=== PATIENT | male | born 1990 | race Caucasian/White ===

== ENCOUNTER 2019-09-11 21:59 | Emergency (ER) | payer OTHER ==
[~2019-09-11 21:59] MED LIST: HYDACE5 PO; PROM25 PO
[2019-09-11] MEDS ORDERED: VENL75ER PO (22:20)
== END 2019-09-11 23:18 | disposition home or self-care (01) ==
DX: F10.129 Alcohol abuse with intoxication, unspecified (principal); S09.90XA Unspecified injury of head, initial encounter; S50.01XA Contusion of right elbow, initial encounter; W22.8XXA Striking against or struck by other objects, initial encounter

== ENCOUNTER 2019-09-12 21:37 | Inpatient (IN) | payer OTHER ==
[~2019-09-12] VITALS: Ht 175.3 cm; Wt 89.2 kg
[~2019-09-12 21:37] MED LIST changes: +VENL75ER PO
[2019-09-12 23:54] LABS: BASOPHILS ABSOLUTE AUTO 0.06 K/mm3 (0.00-0.23); BASOPHILS PERCENT AUTO 1 % (0-2); EOSINOPHILS ABSOLUTE AUTO 0.03 K/mm3 (0.00-0.68); EOSINOPHILS PERCENT AUTO 1 % (0-6); Hematocrit 39.5 % (37.0-53.0); Hemoglobin 13.2 g/dL (13.5-17.5); IMMATURE GRAN ABSOLUTE AUTO 0.02 K/mm3 (0.00-0.10); IMMATURE GRAN PERCENT AUTO 0 % (0-1); LYMPHOCYTES ABSOLUTE AUTO 0.85 K/mm3 (0.84-5.20); LYMPHOCYTES PERCENT AUTO 15 % (21-46); MONOCYTES ABSOLUTE AUTO 0.73 K/mm3 (0.16-1.47); MONOCYTES PERCENT AUTO 13 % (4-13); Mean Corpuscular HGB 30.6 pg (26.0-34.0); Mean Corpuscular HGB Conc 33.4 g/dL (31.5-36.5); Mean Corpuscular Volume 92 fL (80-100); Mean Platelet Volume 9.9 fL (9.1-12.4); NEUTROPHILS ABSOLUTE AUTO 4.07 K/mm3 (1.96-9.15); NEUTROPHILS PERCENT AUTO 71 % (41-73); Platelet Count 116 K/mm3 (150-400); RDW Coefficient Variation 14.8 % (11.7-14.2); RDW Standard Deviation 50.4 fL (35.1-46.3); Red Blood Cell Count 4.31 M/mm3 (4.30-5.90); White Blood Cell Count 5.76 K/mm3 (4.00-11.30)
[2019-09-13 00:01] LABS: Alanine Aminotransfer (ALT/SGP 130 U/L (12-78); Albumin, Blood 3.9 g/dL (3.4-5.0); Albumin/Globulin Ratio 1.1 (0.8-1.8); Alk Phos 93 U/L (50-136); Anion Gap 10 mmol/L (6-16); Aspartate Aminotrans (AST/SGOT 128 U/L (12-37); Bilirubin, Total 0.7 mg/dL (0.1-1.0); Blood Urea Nitrogen 8 mg/dL (8-24); Bun/Creatinine Ratio 11.1 (12.0-20.0); CO2, Blood 26 mmol/L (21-32); Calcium, Blood 8.4 mg/dL (8.5-10.1); Chloride, Blood 101 mmol/L (98-108); Creatinine, Blood 0.72 mg/dL (0.60-1.20); Globulin, Blood 3.4 g/dL (2.2-4.0); Glomerular Filtration Rate >60 (60-); Glucose, Blood 92 mg/dL (70-99); Sodium, Blood 137 mmol/L (136-145); Total Protein, Blood 7.3 g/dL (6.4-8.2)
[2019-09-13] MEDS ORDERED: BUPR100 PO (00:47)
--- NOTE | 2019-09-13 05:49 | NUR ---
SHIFT SUMMARY PATIENT SLEPT WELL THROUGH NIGHT. WITHDRWAL SYMPTOMS GREATLY IMPROVED SINCE STARTING PRECEDEX DRIP @ 03:30. GAVE LIBRIUM IN HOPES TO BE ABLE TO TURN OFF DRIP LATER ON DAY SHIFT, WILL CONTINUE TO MONITOR. PRECEDEX INFUSING @ 0.2 MCG/KG/HOUR. PATIENT HAS REMAINED PLEASANT TO SPEAK WITH, NO SIGNS OF AGITATION. NO C/O PAIN. NOTABLE SYMPTOMS WERE TREMORS, NOW ABLE TO HOLD A CUP AND FEED HIMSELF ICE CHIPS, WHERE EARLIER PT. WAS SHAKING SO VOILENTLY HE SHOOK ICE CHIPS OUT OF CUP. ASSESSMENT IS CHARTED. VSS. WILL CONTINUE TO MONITOR.
[2019-09-13 06:08] LABS: BASOPHILS ABSOLUTE AUTO 0.06 K/mm3 (0.00-0.23); BASOPHILS PERCENT AUTO 1 % (0-2); EOSINOPHILS ABSOLUTE AUTO 0.07 K/mm3 (0.00-0.68); EOSINOPHILS PERCENT AUTO 1 % (0-6); Hematocrit 39.5 % (37.0-53.0); Hemoglobin 13.2 g/dL (13.5-17.5); IMMATURE GRAN ABSOLUTE AUTO 0.02 K/mm3 (0.00-0.10); IMMATURE GRAN PERCENT AUTO 0 % (0-1); LYMPHOCYTES ABSOLUTE AUTO 1.06 K/mm3 (0.84-5.20); LYMPHOCYTES PERCENT AUTO 18 % (21-46); MONOCYTES ABSOLUTE AUTO 0.71 K/mm3 (0.16-1.47); MONOCYTES PERCENT AUTO 12 % (4-13); Mean Corpuscular HGB 30.9 pg (26.0-34.0); Mean Corpuscular HGB Conc 33.4 g/dL (31.5-36.5); Mean Corpuscular Volume 93 fL (80-100); NEUTROPHILS ABSOLUTE AUTO 3.83 K/mm3 (1.96-9.15); NEUTROPHILS PERCENT AUTO 67 % (41-73); Platelet Count 107 K/mm3 (150-400); RDW Coefficient Variation 14.7 % (11.7-14.2); RDW Standard Deviation 49.3 fL (35.1-46.3); Red Blood Cell Count 4.27 M/mm3 (4.30-5.90); White Blood Cell Count 5.75 K/mm3 (4.00-11.30)
[2019-09-13 06:21] LABS: Alanine Aminotransfer (ALT/SGP 121 U/L (12-78); Albumin, Blood 3.7 g/dL (3.4-5.0); Albumin/Globulin Ratio 1.1 (0.8-1.8); Alk Phos 81 U/L (50-136); Anion Gap 6 mmol/L (6-16); Aspartate Aminotrans (AST/SGOT 113 U/L (12-37); Bilirubin, Total 1.1 mg/dL (0.1-1.0); Blood Urea Nitrogen 11 mg/dL (8-24); Bun/Creatinine Ratio 13.8 (12.0-20.0); CO2, Blood 28 mmol/L (21-32); Calcium, Blood 8.7 mg/dL (8.5-10.1); Chloride, Blood 99 mmol/L (98-108); Globulin, Blood 3.4 g/dL (2.2-4.0); Glomerular Filtration Rate >60 (60-); Glucose, Blood 104 mg/dL (70-99); Sodium, Blood 133 mmol/L (136-145); Total Protein, Blood 7.1 g/dL (6.4-8.2)
--- NOTE | 2019-09-13 08:49 | NUR ---
ASSUMED CARE OF PT AT 0700. REPORT FROM SHANA HALL. PT RESTING IN BED. WAKES c VERBAL STIMULI. A&O X 4. ANSWERS QUESTIONS APPROPRIATELY. DENIES SPECIFIC COMPLAINTS, STATES "I JUST FEEL LIKE CRAP." REPORTS MILD NAUSEA. DENIES HOGUE, VOMITING, HALLUCINATIONS. COOPERATIVE AND PLEASANT. RETURNS TO SLEEP WHEN UNDISTURBED. PRECEDEX INFUSING AT 0.2 MCG/KG/HR AT START OF SHIFT. PLACED ON STANDBY. CIWA 3 AT THIS TIME. WILL CONTINUE TO MONITOR AND MEDICATE c ATIVAN AND LIBRIUM. PT ABLE TO REPOSITION SELF AND SHIFT IN BED. USES CALL LIGHT APPROPRIATELY. MAEW. MEDINAS. WILL CONTINUE TO MONITOR.
--- NOTE | 2019-09-13 16:55 | NUR ---
SHIFT SUMMARY PT STATUS CHANGED TO PCU THIS SHIFT. PRECEDEX ON STANDBY SINCE THIS AM. MEDICATED c ATIVAN AND LIBRIUM PRN. CIWAS RANGED FROM 3-16. PT TREMOROUS AND DIAPHORETIC. DENIES HALLUCINATIONS, CONFUSION, N/V, OR HOGUE. ABLE TO STAND AT BEDSIDE TO USE URINAL. TOLERATED DIET WELL. VSS. WILL CONTINUE TO MONITOR UNTIL REPORT TO ONCOMING NURSE.
--- NOTE | 2019-09-14 05:39 | NUR ---
SHIFT SUMMARY PATIENT SLEPT OFF AND ON THROUGH NIGHT. CIWA ~ 12-15 WHEN NEEDING ATIVAN, HAVE GIVEN AVAILABLE LIBRIUM WELL. CONTINUES TO DEVELOP MODERATE TREMORS, HOWEVER COORDINATION IS GREATLY IMPROVED TONIGHT COMPARED TO YESTERDAY, ABLE TO FEED SELF, BRUSH TEETH, BASIC A.D.L.s. ATTEMPTED STANDING A COUPLE OF TIMES, STILL VERY SHAKY IN LEGS, DECIDED AGAINST STANDING/TRANSFERRING TO CHAIR, PT. AGREEABLE. PATIENT REMAINS CALM, COOPERATIVE, ALERT, ORIENTED, AND VERY PLEASANT. ~ 03:00 PATIENT STARTED TO DEVELOP HEADACHE, NAUSEA, IMPROVED WITH 2MG ATIVAN, SEE EMAR. OTHERWISE NO ACUTE CHANGES OVERNIGHT. ASSESSMENT IS CHARTED. VSS. WILL CONTINUE TO MONITOR.
--- NOTE | 2019-09-14 16:51 | NUR ---
SHIFT SUMMARY/TRANSFER TO MEDICAL FLOOR CIWAS 8-9 THIS SHIFT. MEDICATED c LIBRIUM q6 AND ATIVAN PRN FOR WITHDRAW. PT CONTINUES TO HAVE TREMORS, IMPROVED SINCE YESTERDAY DAY SHIFT. ABLE TO SHOWER INDEPENDENTLY c STANDBY ASSIST. REPORTED OCCASIONAL NAUSEA, NO EMESIS. DENIES HALLUCINATIONS. USING CALL LIGHT APPROPRIATELY. VSS. PT EXPRESSED INTEREST IN INPATIENT TREATMENT, CARE MANAGEMENT NOTIFIED. REPORT TO MEDICAL RN. ALL BELONGINGS SENT c PT. TRANSFERRED VIA WC.
--- NOTE | 2019-09-14 16:59 | NUR ---
TRANSFER NOTE: PT ARRIVED TO THE UNIT VIA W/C AT 1644. PT SBA TO HOSP BED AND ORIENTED TO ROOM. CALL LIGHT WITHIN REACH. PT CURRENTLY RESTING IN BED. RECEIVED REPORT FROM FLEX HALL.
--- NOTE | 2019-09-14 19:04 | NUR ---
SHIFT SUMMARY: PT TRANSFERRED FROM ICU THIS EVENING. PT LUNGS ARE CLEAR AND VSS. PT GIVEN 2MG ATIVAN AFTER ARIVING TO UNIT. SEE ALCOHOL WITHDRAWL ASSESSMENT. PT GIVEN FLUIDS UPON REQUEST. REPORT GIVEN TO NIGHT RN.
--- NOTE | 2019-09-14 19:30 | NUR ---
ASSUMED CARE RECEIVED REPORT FROM DAY RN, ASSUMED CARE OF PT. PT RESTING COMFORTABLY AT THIS TIME, NO S/S ACUTE DISTRESS NOTED, AT EASE. DENIES NEEDS AT THIS TIME. CALL LIGHT, POSSESSIONS IN REACH, BED IN LOWEST POSITION. WILL CONTINUE TO MONITOR.
--- NOTE | 2019-09-15 03:38 | NUR ---
SHIFT SUMMARY PT RESTING COMFORTABLY AT THIS TIME, NO S/S ACUTE DISTRESS NOTED. CIWAS RANGING BETWEEN 0-7, PT TREATED ORDERED. CALLING FOR NEEDS APPROPRIATELY, UP IN ROOM WITH SUPERVISION NEEDED. DENIES NEEDS AT THIS TIME. CALL LIGHT, POSSESSIONS IN REACH, WILL CONTINUE TO MONITOR UNTIL DAY RN ASSUMES CARE
[2019-09-15 05:14] LABS: BASOPHILS ABSOLUTE AUTO 0.07 K/mm3 (0.00-0.23); BASOPHILS PERCENT AUTO 1 % (0-2); EOSINOPHILS ABSOLUTE AUTO 0.15 K/mm3 (0.00-0.68); EOSINOPHILS PERCENT AUTO 2 % (0-6); Hematocrit 40.6 % (37.0-53.0); Hemoglobin 13.6 g/dL (13.5-17.5); IMMATURE GRAN ABSOLUTE AUTO 0.03 K/mm3 (0.00-0.10); IMMATURE GRAN PERCENT AUTO 0 % (0-1); LYMPHOCYTES ABSOLUTE AUTO 1.41 K/mm3 (0.84-5.20); LYMPHOCYTES PERCENT AUTO 21 % (21-46); MONOCYTES ABSOLUTE AUTO 0.68 K/mm3 (0.16-1.47); MONOCYTES PERCENT AUTO 10 % (4-13); Mean Corpuscular HGB 31.1 pg (26.0-34.0); Mean Corpuscular HGB Conc 33.5 g/dL (31.5-36.5); Mean Corpuscular Volume 93 fL (80-100); Mean Platelet Volume 10.3 fL (9.1-12.4); NEUTROPHILS PERCENT AUTO 66 % (41-73); Platelet Count 129 K/mm3 (150-400); RDW Coefficient Variation 14.1 % (11.7-14.2); RDW Standard Deviation 48.7 fL (35.1-46.3); Red Blood Cell Count 4.37 M/mm3 (4.30-5.90); White Blood Cell Count 6.84 K/mm3 (4.00-11.30)
[2019-09-15 05:35] LABS: Anion Gap 8 mmol/L (6-16); Blood Urea Nitrogen 14 mg/dL (8-24); CO2, Blood 27 mmol/L (21-32); Calcium, Blood 8.8 mg/dL (8.5-10.1); Chloride, Blood 98 mmol/L (98-108); Creatinine, Blood 0.94 mg/dL (0.60-1.20); Glomerular Filtration Rate >60 (60-); Glucose, Blood 107 mg/dL (70-99); Potassium, Blood 3.6 mmol/L (3.5-5.5); Sodium, Blood 133 mmol/L (136-145)
[2019-09-15] MEDS ORDERED: BUPR75 PO (14:56)
--- NOTE | 2019-09-15 18:38 | NUR ---
SHIFT SUMMARY. PT RESTING IN BED WITH EYES CLOSED DURING MOST OF THE SHIFT. PT REQUIRED MEDICATION FOR WITHDAWL SYMPTOMS TWICE THIS SHIFT. PT C/O HEAD PAIN ONCE THIS SHIFT, PT REPORTS FALL PRIOR TO ADMISSION, DR. HILL NOTIFIED AND RECIEVED ORDER FOR IBUPROFEN. PT MEDICATED FOR PAIN WITH GOOD EFFECT. NO OTHER CHANGES OR CONCERNS.
--- NOTE | 2019-09-15 19:58 | NUR ---
Alcohol WD score 14 BP elevated. Ativen 2 mg given for ETOH WD. Fall precautions as per protocol. Will recheck BP since I have medicated for withdrawl.
--- NOTE | 2019-09-16 05:18 | NUR ---
28 year old Male alcoholic with admission with delerium tremens continues to require rx to tx CIWA of 12 this AM. BP stabilized after 2 mg ativen last night & PT rested fairly well. This AM CIWA 12 & PT medicated with 50 mg PO librium to decrease potential for injury. PT had fallen at [address] during withdrawl attempt & has rt eye ecchymosis & scalp laceration. He is [employer] recieved ETOH tx over 1 year ago & desires to go to inpt tx program at [facility]. Willing to go to [place] for InPT tx program. PT says he is currently homeless but could DC to Cousins home until treatment slot opens up. PT has been in contact with [facility] this AM per PT report to get into treatment but says there is several weeks wait to get into program. States he had almost 1 year sobrity post rehab. Encouraged ETOH cessation.
--- NOTE | 2019-09-16 16:27 | NUR ---
PT RESTING, EYES CLOSED, RESP EASY, UNLABORED, DID NOT AWAKEN
--- NOTE | 2019-09-16 19:41 | NUR ---
PT VERY PLEASANT AND RESPECTFUL TODAY. ADMITS TO DRINKING ISSUES, TRYING TO GET HELP. ENCOURAGED HIM SEVERAL TIMES TODAY. PT MANAGED WITH AVAIL MEDS FOR ETOH WITHDRAWAL. NO OTHER CONCERNS AT THIS TIEM. BED IN LOW POSITION, CALL LITE IN REACH, CALLS APPROP.
--- NOTE | 2019-09-17 01:46 | NUR ---
CIWAS CONTINUE. VOICED SEVERE HEADACHE, WAS NOTIFIED, AND PT RECEIVED TRAMADOL 100 MG PO X 1. MED PARTIALLY EFFECTIVE, DROPPED THE PAIN FROM 10 TO 8, BUT VOICED PAIN BACK. NOTICED CIWA AROUND 2400 WAS A 9, AND HIS HEADACHE WAS ADHIKARI - ALSO NOTED BP AND PULSE TRENDING UPWARD. NOTIFIED, AND DR LUZ ORDERED TYLENOL PO Q 6 HR PRN AND FENTANYL 25 - 50 MCG IV Q 4 HR PRN. FENTANYL ADMINISTERED (50 MCG) AND PT IMMEDIATELY VOICED IMPROVEMENT. WILL CONTINUE TO MONITOR. CALL LIGHT IN REACH.
--- NOTE | 2019-09-17 06:20 | NUR ---
SHIFT SUMMARY CIWAS CONTINUE, LOW SCORES BUT HEADACHE CONTINUES WHICH MAKES SCORES MODERATE. MD WAS NOTIFIED, ANALGESICS ORDERED, AND THEN METAPROLOL ORDERED PO BID DUE TO ELEVATED BP AND PULSE. SEE DOC FLOW SHEETS AND MAR FOR DETAILS. CALL LIGHT IN REACH.
--- NOTE | 2019-09-17 08:00 | NUR ---
PT PLEASANT COOP A/O/ STATES PAIN MOSTLY IN HEAD, MID BACK OF HEAD TO RT EAR. FENTANYL NOT SEEMING TO HELP MUCH. WILL SPEAK TO DR. RT EYE PRETTY MUCH CLOSED FROM SWELLING. BRUISING. DARK BLUE BRUISING. BRUISE ON BACK OF EAR REMAINS. SOME SWELLING, SOME BRUISING. H/R REG, NO MURMER NOTED, NO TELE. LUNGS CLEAR RESP EASY, UNLABORED. BT X4 LAST BM THIS AM. VOIDS INDEPENDANT TO BATHROOM. BED IN LOW POSITION, CALL LITE IN REACH, CALL S APPROP
--- NOTE | 2019-09-17 10:06 | NUR ---
SPOKE TO DR HILL RE PT PAIN. FENTANYL NOT SEEMING TO HELP MUCH AT ALL. REQUEST TORADOL IF POSSIBLE. TO REVIEW.
--- NOTE | 2019-09-17 16:56 | NUR ---
PT PLEASANT TODAY. DR CHANGED PAIN TO TORADOL. PT STATES SOME IMPROVEMENT. STATES H/ACHE MOSTLY FROM FALL. PAIN TO BACK OF HEAD TO BEHIND EAR. HAS BEEN SLEEPING MUCH DAY. STATES NOT MUCH SLEEP LAST NIGHT. NO OTHER CONCERNS AT THIS TIME. BED IN LOW POSITION,C ALL LITE IN REACH, CALL APPRP
--- NOTE | 2019-09-18 03:54 | NUR ---
SHIFT SUMMARY PT REMAINS ON CIWA ASSESSMENTS. NUMBERS LOW, BUT HEADACHE CONTINUES WHICH DRIVES UP NUMBERS TO 7 - 8. RECEIVED TORADOL PO ORDERED FOR HEADACHE, AND HAS BEEN RESTING QUIETLY WITH FEW INTERRUPTIONS SINCE. CALL LIGHT IN REACH.
[2019-09-18] MEDS ORDERED: CHLO10 PO (10:47)
[2019-09-18] MEDS ORDERED: GABA300 PO (10:48)
[2019-09-18] MEDS ORDERED: METO50ER PO (10:49)
--- NOTE | 2019-09-18 11:55 | NUR ---
PT DISCHARGED. PT DISCHARGED IN STABLE CONDITION. PT EDUCATED ON DC INSTRUCTIONS AND FOLLOW UP APPOINTMENTS. SCRIPT FOR LIBRIUM GIVEN TO PT. PT STATES NO FURTHER QUESTIONS AT THIS TIME. ESCORTED OUT BY AIDE. DRIVEN HOME BY MOTHER.
== END 2019-09-18 11:54 | disposition home or self-care (01) | DRG 897 ==
LOC: ER 21:37 → ICUW 21:38 → ICUE 23:04 → ICUW 23:27 → ER 23:27 → ICUE 23:57 → ICUW 23:57 → ICUE 09-13 14:39 → MEDS 09-14 16:41 → ENPENDDIS 09-18 11:12 → MEDS 09-18 11:54
PROVIDERS: Internal Medicine; ADMIT Internal Medicine
DX: F10.231 Alcohol dependence with withdrawal delirium (principal); S06.0X9A Concussion with loss of consciousness of unspecified duration, initial encounter; D69.6 Thrombocytopenia, unspecified; W19.XXXA Unspecified fall, initial encounter; I10 Essential (primary) hypertension; F41.9 Anxiety disorder, unspecified; F43.10 Post-traumatic stress disorder, unspecified; F32.9 Major depressive disorder, single episode, unspecified; E83.42 Hypomagnesemia; Z87.820 Personal history of traumatic brain injury
CPT/HCPCS: 36415; 80048; 80053; 85025; 96374; 99285-25; A9270; A9270-GY; J1650; J2060; J2405; J3010; J3411; J3475; J7030; J7042

== ENCOUNTER 2019-11-20 15:12 | Emergency (ER) | payer OTHER ==
[~2019-11-20] VITALS: Ht 175.3 cm; Wt 90.7 kg
[~2019-11-20 15:12] MED LIST changes: +BUPR100 PO; +BUPR75 PO; +CHLO10 PO; +GABA300 PO; +HYDR1TAB94 PO; +METO50ER PO
[2019-11-20] MEDS ORDERED: LEVE500 PO (16:54)
== END 2019-11-20 17:20 | disposition home or self-care (01) ==
LOC: ER 15:12
DX: R56.9 Unspecified convulsions (principal); Z79.899 Other long term (current) drug therapy; F32.9 Major depressive disorder, single episode, unspecified; F41.9 Anxiety disorder, unspecified; I10 Essential (primary) hypertension; F43.10 Post-traumatic stress disorder, unspecified; Z87.891 Personal history of nicotine dependence; Z87.820 Personal history of traumatic brain injury
CPT/HCPCS: 96365; 99284-25; J1953

== ENCOUNTER 2020-01-05 08:53 | Inpatient (IN) | payer OTHER ==
[~2020-01-05] VITALS: Ht 177.8 cm; Wt 85.7 kg
[~2020-01-05 08:53] MED LIST changes: +LEVE500 PO; -VENL75ER PO; +Venlafaxine HC100 MG PO
[2020-01-05 09:31] LABS: BASOPHILS ABSOLUTE AUTO 0.22 K/mm3 (0.00-0.23); BASOPHILS PERCENT AUTO 1 % (0-2); EOSINOPHILS ABSOLUTE AUTO 0.09 K/mm3 (0.00-0.68); EOSINOPHILS PERCENT AUTO 1 % (0-6); Hemoglobin 17.1 g/dL (13.5-17.5); IMMATURE GRAN ABSOLUTE AUTO 0.08 K/mm3 (0.00-0.10); IMMATURE GRAN PERCENT AUTO 1 % (0-1); LYMPHOCYTES ABSOLUTE AUTO 2.21 K/mm3 (0.84-5.20); LYMPHOCYTES PERCENT AUTO 14 % (21-46); MONOCYTES PERCENT AUTO 8 % (4-13); Mean Corpuscular HGB 31.8 pg (26.0-34.0); Mean Corpuscular Volume 103 fL (80-100); Mean Platelet Volume 9.6 fL (9.1-12.4); NEUTROPHILS ABSOLUTE AUTO 12.27 K/mm3 (1.96-9.15); NEUTROPHILS PERCENT AUTO 76 % (41-73); Platelet Count 270 K/mm3 (150-400); RDW Coefficient Variation 13.2 % (11.7-14.2); RDW Standard Deviation 50.7 fL (35.1-46.3); Red Blood Cell Count 5.37 M/mm3 (4.30-5.90); White Blood Cell Count 16.17 K/mm3 (4.00-11.30)
[2020-01-05 09:34] LABS: Hematocrit 55.2 % (37.0-53.0)
[2020-01-05 09:48] LABS: Alanine Aminotransfer (ALT/SGP 260 U/L (12-78); Albumin, Blood 5.3 g/dL (3.4-5.0); Albumin/Globulin Ratio 1.1 (0.8-1.8); Alk Phos 133 U/L (50-136); Anion Gap 34 mmol/L (6-16); Aspartate Aminotrans (AST/SGOT 202 U/L (12-37); Bilirubin, Total 0.8 mg/dL (0.1-1.0); Blood Urea Nitrogen 11 mg/dL (8-24); Bun/Creatinine Ratio 10.4 (12.0-20.0); CO2, Blood 8 mmol/L (21-32); Chloride, Blood 94 mmol/L (98-108); Creatinine, Blood 1.06 mg/dL (0.60-1.20); Globulin, Blood 4.7 g/dL (2.2-4.0); Glomerular Filtration Rate >60 (60-); Glucose, Blood 89 mg/dL (70-99); Potassium, Blood 3.9 mmol/L (3.5-5.5); Sodium, Blood 136 mmol/L (136-145)
[2020-01-05 10:02] LABS: Ethanol (Alcohol), Blood, Med 77 mg/dL; Magnesium, Blood 2.3 mg/dL (1.6-2.4); Troponin I <0.015 ng/mL (0.000-0.040)
[2020-01-05 11:17] LABS: U Amphetamine Screen Not Detected; U Barbituate Screen Not Detected; U Benzodiazapine Screen Not Detected; U Buprenorphine Screen Not Detected; U Cannabinoids Screen DETECTED; U Cocaine Screen Not Detected; U Methadone Screen Not Detected; U Methamphetamine Screen Not Detected; U Opiates Screen Not Detected; U Oxycodone Screen Not Detected; U Phencyclidine Screen Not Detected; U Propoxyphene Screen Not Detected
[2020-01-05] MEDS ORDERED: LEVE500 PO (12:21)
--- NOTE | 2020-01-05 14:29 | NUR ---
CARE ASSUMED PT TO ICU 2 FROM ER AT 1220, ASSESSMENT COMPLETED. PT ALERT AND ORIENTED X4, APPROPRIATE AND COOPERATIVE. PT TREMULOUS, CIWA MINIMAL AT THIS TIME, PT MEDICATED WITH LIBRIUM AND ATIVAN FOR SYMPTOMS AND ELEVATED BP, PRECEDEX AND BICARB INFUSIONS INTITIATED. HR 100-105 SINUS, SPO2 98% ON RA. LS CLEAR, ABD DISTENDED, BT HYPOACTIVE, PT REPORTS N/V X4 DAYS, REMAINS INTERMITTENTLY NAUSEATED. PT MEDICATED FOR 10/10 THROAT PAIN PER ORDERS, IS NOW SLEEPING. HR IMPROVING TO 80'S-90'S, BP 150/80'S AFTER CIWA AND PAIN MEDS. PT REPORTS HE HAS AN INTERVIEW NEXT WEEK WITH AN INPATIENT FACILITY FOR ETOH TREATMENT IN [place].
[2020-01-05 16:43] LABS: Anion Gap 9 mmol/L (6-16); Blood Urea Nitrogen 9 mg/dL (8-24); Bun/Creatinine Ratio 10.9 (12.0-20.0); CO2, Blood 26 mmol/L (21-32); Calcium, Blood 8.1 mg/dL (8.5-10.1); Chloride, Blood 99 mmol/L (98-108); Creatinine, Blood 0.83 mg/dL (0.60-1.20); Glomerular Filtration Rate >60 (60-); Glucose, Blood 88 mg/dL (70-99); Sodium, Blood 134 mmol/L (136-145)
--- NOTE | 2020-01-05 17:51 | NUR ---
END OF SHIFT PT'S VS IMPROVED T/O SHIFT AFTER PRECEDEX, ATIVAN, AND LIBRIUM. HR 80'S-90'S SINUS, BP 140'S70'S. PT HAS SLEPT ALL AFTERNOON, WAKES EASILY AND REMAINS ORIENTED AND APPROPRIATE, FALLS BACK ASLEEP QUICKLY AFTER CARES. TREMORS REMAIN PRESENT, PT DENIES NAUSEA AND ABD PAIN, NO C/O THROAT PAIN SINCE DILAUDID ADMINISTERED. LABS IMPROVED, NOTIFIED, BICARB GTT DC'D AND MAINTENANCE FLUIDS CHANGED TO NS @ 100. PRECEDEX GTT REMAINS AT 0.2MCG. WILL CONTINUE TO MONITOR AND REPORT TO ONCOMING SHIFT.
[2020-01-06 03:25] LABS: BASOPHILS ABSOLUTE AUTO 0.04 K/mm3 (0.00-0.23); BASOPHILS PERCENT AUTO 1 % (0-2); EOSINOPHILS ABSOLUTE AUTO 0.03 K/mm3 (0.00-0.68); EOSINOPHILS PERCENT AUTO 1 % (0-6); Hemoglobin 13.4 g/dL (13.5-17.5); IMMATURE GRAN ABSOLUTE AUTO 0.01 K/mm3 (0.00-0.10); IMMATURE GRAN PERCENT AUTO 0 % (0-1); LYMPHOCYTES ABSOLUTE AUTO 1.21 K/mm3 (0.84-5.20); LYMPHOCYTES PERCENT AUTO 18 % (21-46); MONOCYTES ABSOLUTE AUTO 0.76 K/mm3 (0.16-1.47); MONOCYTES PERCENT AUTO 12 % (4-13); Mean Corpuscular HGB 32.1 pg (26.0-34.0); Mean Corpuscular HGB Conc 33.5 g/dL (31.5-36.5); Mean Platelet Volume 9.5 fL (9.1-12.4); NEUTROPHILS ABSOLUTE AUTO 4.57 K/mm3 (1.96-9.15); NEUTROPHILS PERCENT AUTO 69 % (41-73); Platelet Count 157 K/mm3 (150-400); RDW Coefficient Variation 13.2 % (11.7-14.2); RDW Standard Deviation 47.1 fL (35.1-46.3); Red Blood Cell Count 4.18 M/mm3 (4.30-5.90); White Blood Cell Count 6.62 K/mm3 (4.00-11.30)
[2020-01-06 03:33] LABS: Mean Corpuscular Volume 96 fL (80-100)
[2020-01-06 03:47] LABS: Magnesium, Blood 2.2 mg/dL (1.6-2.4)
[2020-01-06 04:00] LABS: Alanine Aminotransfer (ALT/SGP 144 U/L (12-78); Albumin, Blood 3.5 g/dL (3.4-5.0); Albumin/Globulin Ratio 1.1 (0.8-1.8); Alk Phos 78 U/L (50-136); Anion Gap 10 mmol/L (6-16); Aspartate Aminotrans (AST/SGOT 98 U/L (12-37); Bilirubin, Total 1.1 mg/dL (0.1-1.0); Blood Urea Nitrogen 9 mg/dL (8-24); Bun/Creatinine Ratio 11.2 (12.0-20.0); CO2, Blood 25 mmol/L (21-32); Calcium, Blood 8.4 mg/dL (8.5-10.1); Chloride, Blood 102 mmol/L (98-108); Globulin, Blood 3.1 g/dL (2.2-4.0); Glomerular Filtration Rate >60 (60-); Glucose, Blood 77 mg/dL (70-99); Potassium, Blood 3.6 mmol/L (3.5-5.5); Sodium, Blood 137 mmol/L (136-145); Total Protein, Blood 6.6 g/dL (6.4-8.2)
--- NOTE | 2020-01-06 04:43 | NUR ---
SHIFT SUMMARY PATIENT HAS SLEPT WELL THROUGH NIGHT. CIWA HIGHEST WAS 10, SCORED FOR TREMORS, ANXIETY, RESTLESSNESS, SWEATING. HAS NO C/O HALLUCINATIONS TONIGHT. NO SEIZURE ACTIVITY. PT. ASKED EARLIER ABOUT RESTARTING HOME VENLEFAXINE, SPOKE WITH KRISTIN COLEMAN EARLIER IN SHIFT, UNCOMFORTABLE STARTING MEDICATION IS CONTRAINDICATED WITH USE OF ALCOHOL AND IN THOSE WITH LIVER DISEASE (PT. HAS ELEVATED LIVER ENZYMES.) AFTER GIVING DILAUDID & ATIVAN PRIOR TO 10PM LAST NIGHT, PT. HAS SLEPT WELL THE REST OF THE NIGH. NO TREMORS TO NOTE PT. REPOSITIONS SELF IN BED. NO C/O PAIN. ASSESSMENT IS CHARTED. VSS. WILL CONTINUE TO MONITOR.
--- NOTE | 2020-01-06 08:53 | NUR ---
AM NOTE.... ASSUMED CARE OF PT APROX 0700, PT IS A&Ox4, WAKES EASILY TO VERBAL STIMULI, RESPONDS TO QUESTIONS APPROPRIATELY. PT IS ON PRECEDEX RUNING AT 0.2 MCG/KG/HR CIWA SCORE 9 AT THIS TIME. L/S CLEAR T/O ON RA, BT PRESENT AND HYPOACTIVE, ABD IS SOFT AND NONTENDER TO PALP. PT DENIES ANY CHEST PAIN/PRESSURE N/V OR SOB. PT C/O OF SEVERE SORE THROAT FROM "ALL THE THOWING UP I HAVE DONE THE PAST FEW DAYS." PT ALSO ST[facility] TH[facility]ING UP SMALL AMOUNTS OF FOREST RED BLOOD. PT'S VS STABLE AT THIS TIME. CALL LIGHT IN REACH WILL CONTINUE TO MONITOR.
--- NOTE | 2020-01-06 16:55 | NUR ---
SHIFT SUMMARY... NO ACUTE NEGATIVE CHANGES NOTED THIS SHIFT. PT'S LAST CIWA WAS 8-9. PT HAS SLEPT MOST OF THE SHIFT. PT HAS BEEN TOLERATING A CLEAR LIQUID DIET WELL, PT MAY ADVANCE DIET TOLERATED. PT HAS BEEN VOIDING INDEPENDENTLY WITH URINALS AT THE BEDSIDE. PT HAS BEEN VOIDING LARGE AMOUNTS OF URINE EACH TIME. PT STILL C/O OF SEVERE PAIN TO HIS THROAT. PT HAS NOT HAD A BM THIS SHIFT. PT HAS BEEN INDEPENDENT WITH MOVING IN THE BED TURNING SEVERAL TIMES PER HOUR. PRECEDEX HAS BEEN TITRATED OFF SINCE 1100. CALL LIGHT IN REACH WILL CONTINUE TO MONITOR UNTIL REPORT IS GIVEN TO ONCOMING RN.
--- NOTE | 2020-01-06 18:29 | NUR ---
PT UPDATE.... PT HAD ASKED TO GET UP AND USE THE TOILET, PT WAS STEADY ON HIS FEET AND WAS ABLE TO WALK TO THE TOILET WITHOUT ANY ISSUE. AFTER THE PT HAD A LARGE LOOSE BM. THIS RN NOTICED THAT THE PT'S ANXIETY HAD GREATLY INCREASED AND HE WAS NOW TALKING ABOUT LEAVING AMA. THIS RN SPOKE TO THE PT ABOUT HIS GOALS AND HIS DISIRE ABOUT BEING SOBER. PT STATED THAT HE WANTED TO BE SOBER AND THAT HE WANTED HELP, PT WAS HOPING TO D/C FROM THE HOSPTIAL RIGHT TO A CLEAN AND SOBER LIVING HOUSE. CARE MANAGMENT HAS BEEN CONSULTED. WILL CONTINUE TO MONITOR.
--- NOTE | 2020-01-07 05:38 | NUR ---
SHIFT SUMMARY PATIENT HAS SLEPT OFF AND ON THROUGH NIGHT. PAIN SOMEWHAT CONTROLLED, THROAT STILL HURTS, BUT NOT DISTURBING SLEEP. CIWA WAS SCORED FOR TREMORS EARLIER, ALMOST NONPERCEIVABLE NOW. NO ANXIETY, RESLTESSNESS, HEADACHE, ETC. ASSESSMENT IS CHARTED. NO C/O PAIN. VSS. WILL CONTINUE TO MONITOR.
--- NOTE | 2020-01-07 07:45 | NUR ---
AM NOTE... ASSUMED CARE OF PT APROX 0700, PT IS A&Ox4 AND IND IN THE ROOM. PT'S CIWA THIS AM WAS 6, PT STATES HE FEELS BETTER THAN YESTERDAY. VS STABLE AT THIS TIME. L/S CLEAR T/O ON RA, BT PRESENT AND NORMOACTIVE, ABD IS SLIGHLTY FIRM BUT NONTENDER TO PALP. EDEMA NOTED ON ASSESSMENT. PT STILL C/O OF SEVERE SORE THROAT OF 9/10 PAIN. PT USING THE URINAL INDEPENDENTLY AT THE BEDSIDE. PT WAS OFFERED A SHOWER WHICH HE STATED HE WOULD AFTER BREAKFAST. CALL LIGHT IN REACH WILL CONTINUE TO MONITOR.
[2020-01-07] MEDS ORDERED: GABA300 PO (09:59)
--- NOTE | 2020-01-07 10:39 | NUR ---
PT D/C HOME... PT D/C HOME, ALL OF PT'S BELONGINGS PACKED AND SENT WITH THE PT. [facility] [address] [facility] NEW MEDICATION EDUCATION PROVIDED TO THE PT WELL DISCHARGE EDUCATION/INFORMATION. PT DENIED ANY CHEST PAIN/PRESSURE N/V OR SOB AT THIS TIME. BOTH IVS REMOVED WNL. PT'S MOM IS COMING TO PICK HIM UP. PT VERBALIZED HIS UNDERSTANDING NOT TO DRIVE WHILE TAKING THE GABAPENTIN.
== END 2020-01-07 11:17 | disposition home or self-care (01) | DRG 897 ==
LOC: ER 08:53 → ICUW 11:29 → ICUE 11:29
PROVIDERS: Emergency Medicine; ADMIT Internal Medicine
PROC: 5A2204Z Restoration of Cardiac Rhythm, Single (ICD-10-PCS; principal; 2020-01-05)
DX: F10.231 Alcohol dependence with withdrawal delirium (principal); E87.2 Acidosis; I47.1 Supraventricular tachycardia; R56.9 Unspecified convulsions; Z87.820 Personal history of traumatic brain injury; Z87.891 Personal history of nicotine dependence; B19.20 Unspecified viral hepatitis C without hepatic coma; D72.829 Elevated white blood cell count, unspecified; F41.9 Anxiety disorder, unspecified; F32.9 Major depressive disorder, single episode, unspecified; F43.10 Post-traumatic stress disorder, unspecified; Y90.3 Blood alcohol level of 60-79 mg/100 ml
CPT/HCPCS: 36415; 71045; 80048; 80053; 82947; 83735; 84443; 84484; 85025; 86850; 86900; 86901; 87081; 92960; 93005; 93010; 96365-59; 96375-59; 99152; 99285-25; C9113; G0480; J0153; J1170; J1885; J2060; J2405; J2550; J2704; J3360; J3411; J3475; J7030

== ENCOUNTER 2020-10-24 16:47 | Observation (INO) | payer OTHER ==
[~2020-10-24] VITALS: Ht 175.3 cm; Wt 81.7 kg
[2020-10-24 17:56] LABS: BASOPHILS ABSOLUTE AUTO 0.07 K/mm3 (0.00-0.23); BASOPHILS PERCENT AUTO 1 % (0-2); EOSINOPHILS ABSOLUTE AUTO 0.01 K/mm3 (0.00-0.68); EOSINOPHILS PERCENT AUTO 0 % (0-6); Hemoglobin 16.5 g/dL (13.5-17.5); IMMATURE GRAN ABSOLUTE AUTO 0.06 K/mm3 (0.00-0.10); IMMATURE GRAN PERCENT AUTO 1 % (0-1); LYMPHOCYTES ABSOLUTE AUTO 0.81 K/mm3 (0.84-5.20); LYMPHOCYTES PERCENT AUTO 8 % (21-46); MONOCYTES ABSOLUTE AUTO 1.01 K/mm3 (0.16-1.47); MONOCYTES PERCENT AUTO 10 % (4-13); Mean Corpuscular HGB 30.8 pg (26.0-34.0); Mean Corpuscular HGB Conc 34.4 g/dL (31.5-36.5); Mean Corpuscular Volume 90 fL (80-100); Mean Platelet Volume 9.5 fL (9.1-12.4); NEUTROPHILS ABSOLUTE AUTO 7.78 K/mm3 (1.96-9.15); NEUTROPHILS PERCENT AUTO 80 % (41-73); Platelet Count 179 K/mm3 (150-400); RDW Coefficient Variation 15.9 % (11.7-14.2); RDW Standard Deviation 52.7 fL (35.1-46.3); Red Blood Cell Count 5.36 M/mm3 (4.30-5.90); White Blood Cell Count 9.74 K/mm3 (4.00-11.30)
[2020-10-24 18:27] LABS: Alanine Aminotransfer (ALT/SGP 265 U/L (12-78); Albumin, Blood 4.6 g/dL (3.4-5.0); Albumin/Globulin Ratio 1.3 (0.8-1.8); Alk Phos 106 U/L (50-136); Anion Gap 8 mmol/L (6-16); Aspartate Aminotrans (AST/SGOT 192 U/L (12-37); Bilirubin, Total 1.3 mg/dL (0.1-1.0); Blood Urea Nitrogen 6 mg/dL (8-24); Bun/Creatinine Ratio 7.4 (12.0-20.0); CO2, Blood 26 mmol/L (21-32); Calcium, Blood 9.3 mg/dL (8.5-10.1); Chloride, Blood 97 mmol/L (98-108); Creatinine, Blood 0.81 mg/dL (0.60-1.20); Globulin, Blood 3.6 g/dL (2.2-4.0); Glomerular Filtration Rate >60 (60-); Glucose, Blood 79 mg/dL (70-99); Potassium, Blood 3.5 mmol/L (3.5-5.5); Sodium, Blood 131 mmol/L (136-145); Total Protein, Blood 8.2 g/dL (6.4-8.2)
[2020-10-24 18:48] LABS: Ethanol (Alcohol), Blood, Med <3 mg/dL
[2020-10-24 23:11] LABS: Magnesium, Blood 2.1 mg/dL (1.6-2.4)
[2020-10-25 05:56] LABS: BASOPHILS ABSOLUTE AUTO 0.05 K/mm3 (0.00-0.23); BASOPHILS PERCENT AUTO 1 % (0-2); EOSINOPHILS ABSOLUTE AUTO 0.04 K/mm3 (0.00-0.68); EOSINOPHILS PERCENT AUTO 1 % (0-6); Hematocrit 43.2 % (37.0-53.0); Hemoglobin 14.7 g/dL (13.5-17.5); IMMATURE GRAN ABSOLUTE AUTO 0.04 K/mm3 (0.00-0.10); IMMATURE GRAN PERCENT AUTO 1 % (0-1); LYMPHOCYTES ABSOLUTE AUTO 1.28 K/mm3 (0.84-5.20); LYMPHOCYTES PERCENT AUTO 18 % (21-46); MONOCYTES ABSOLUTE AUTO 1.11 K/mm3 (0.16-1.47); MONOCYTES PERCENT AUTO 16 % (4-13); Mean Corpuscular HGB 31.1 pg (26.0-34.0); Mean Corpuscular Volume 91 fL (80-100); Mean Platelet Volume 9.9 fL (9.1-12.4); NEUTROPHILS ABSOLUTE AUTO 4.66 K/mm3 (1.96-9.15); NEUTROPHILS PERCENT AUTO 65 % (41-73); Platelet Count 157 K/mm3 (150-400); RDW Coefficient Variation 16.3 % (11.7-14.2); RDW Standard Deviation 54.5 fL (35.1-46.3); Red Blood Cell Count 4.73 M/mm3 (4.30-5.90); White Blood Cell Count 7.18 K/mm3 (4.00-11.30)
[2020-10-25 06:22] LABS: Alanine Aminotransfer (ALT/SGP 197 U/L (12-78); Albumin, Blood 3.7 g/dL (3.4-5.0); Albumin/Globulin Ratio 1.2 (0.8-1.8); Alk Phos 96 U/L (50-136); Anion Gap 6 mmol/L (6-16); Aspartate Aminotrans (AST/SGOT 118 U/L (12-37); Bilirubin, Total 1.4 mg/dL (0.1-1.0); Blood Urea Nitrogen 12 mg/dL (8-24); Bun/Creatinine Ratio 12.9 (12.0-20.0); CO2, Blood 28 mmol/L (21-32); Calcium, Blood 8.4 mg/dL (8.5-10.1); Chloride, Blood 103 mmol/L (98-108); Creatinine, Blood 0.93 mg/dL (0.60-1.20); Glomerular Filtration Rate >60 (60-); Glucose, Blood 100 mg/dL (70-99); Potassium, Blood 3.9 mmol/L (3.5-5.5); Sodium, Blood 137 mmol/L (136-145); Total Protein, Blood 6.7 g/dL (6.4-8.2)
--- NOTE | 2020-10-25 09:09 | NUR ---
PT ARRIVED TO FLOOR AO TREMORS AND SWEATY APPEARANCE NOTICEABLE. PT SETTLED INTO BED AND CALL LIGHT PLACED WITHIN REACH.
--- NOTE | 2020-10-25 17:13 | NUR ---
PT AOX4 EXPERIENCING WITHDRAWLS FOR ETOH. PT HAS HAD CIWAS OF 9-10 AND HAS BEEN TREATED PER EMAR. PT IS A STAND BY TO RESTROOM DUE TO TREMORS. PT HAS CALL LIGHT WITHIN REACH AND WILL CONTINUE TO BE MONITORED CLOSELY. PT IS INTERACTING WELL WHEN AWAKE.
--- NOTE | 2020-10-26 07:25 | NUR ---
PATIENT SLEPT MOST OF NIGHT. MAX CIWA WAS 9. PATIENT IS VERY FORTHCOMING ABOUT SYMPTOMS. VISUAL DISTURBANCES INCLUDE SEEING DOUBLE NUMBERS INSIDE THE CLOCK. AND EARLIER, TWO CLOCKS ALTOGETHER
[2020-10-26] MEDS ORDERED: CHLO25 PO (10:01)
[2020-10-26] MEDS ORDERED: FOLI1 PO (10:02)
[2020-10-26] MEDS ORDERED: B-1100 M1 PO (10:03)
--- NOTE | 2020-10-26 11:15 | NUR ---
SUMMARY/DISCHARGE PT DISCHARGED TO HOME, PT VERBALIZED UNDERSTANDING OF DISCHARGE INSTRUCTIONS REGARDING MEDS AND FOLLOW UP, PT DECLINED A WHEELCHAIR AND WAS ABLE TO AMBULATE SAFELY WITH A STAFF MEMBER TO THE ELEVATOR
== END 2020-10-26 11:13 | disposition home or self-care (01) ==
LOC: ER 16:47 → ERHOLD 16:48 → MEDS 16:48
PROVIDERS: Physician Assistant; ADMIT Internal Medicine
DX: F10.239 Alcohol dependence with withdrawal, unspecified (principal); E86.0 Dehydration; F43.12 Post-traumatic stress disorder, chronic; Z87.891 Personal history of nicotine dependence; Z86.19 Personal history of other infectious and parasitic diseases; Z87.820 Personal history of traumatic brain injury
CPT/HCPCS: 80053; 83735; 85025; 96372; 96374; 96376; 99285-25; A9270; G0378; G0480; J1650; J2060; J3411; J3475; J7030; J7042; J7120

== ENCOUNTER 2021-01-14 14:25 | Emergency (ER) | payer OTHER ==
[~2021-01-14] VITALS: Ht 175.3 cm; Wt 77.1 kg
[~2021-01-14 14:25] MED LIST changes: +B-1100 M1 PO; +CHLO25 PO; +FOLI1 PO
[2021-01-14 15:31] LABS: BASOPHILS PERCENT AUTO 2 % (0-2); EOSINOPHILS ABSOLUTE AUTO 0.01 K/mm3 (0.00-0.68); EOSINOPHILS PERCENT AUTO 0 % (0-6); Hematocrit 44.3 % (37.0-53.0); Hemoglobin 15.3 g/dL (13.5-17.5); IMMATURE GRAN ABSOLUTE AUTO 0.02 K/mm3 (0.00-0.10); IMMATURE GRAN PERCENT AUTO 0 % (0-1); LYMPHOCYTES ABSOLUTE AUTO 0.86 K/mm3 (0.84-5.20); LYMPHOCYTES PERCENT AUTO 15 % (21-46); MONOCYTES ABSOLUTE AUTO 0.53 K/mm3 (0.16-1.47); MONOCYTES PERCENT AUTO 10 % (4-13); Mean Corpuscular HGB 31.9 pg (26.0-34.0); Mean Corpuscular HGB Conc 34.5 g/dL (31.5-36.5); Mean Corpuscular Volume 93 fL (80-100); Mean Platelet Volume 9.3 fL (9.1-12.4); NEUTROPHILS ABSOLUTE AUTO 4.06 K/mm3 (1.96-9.15); NEUTROPHILS PERCENT AUTO 73 % (41-73); Platelet Count 296 K/mm3 (150-400); RDW Standard Deviation 51.9 fL (35.1-46.3); Red Blood Cell Count 4.79 M/mm3 (4.30-5.90); White Blood Cell Count 5.58 K/mm3 (4.00-11.30)
[2021-01-14 15:50] LABS: Alanine Aminotransfer (ALT/SGP 170 U/L (12-78); Albumin, Blood 4.1 g/dL (3.4-5.0); Albumin/Globulin Ratio 1.2 (0.8-1.8); Alk Phos 92 U/L (50-136); Anion Gap 8 mmol/L (6-16); Aspartate Aminotrans (AST/SGOT 138 U/L (12-37); Bilirubin, Total 0.8 mg/dL (0.1-1.0); Blood Urea Nitrogen 5 mg/dL (8-24); Bun/Creatinine Ratio 7.1 (12.0-20.0); CO2, Blood 25 mmol/L (21-32); Calcium, Blood 8.6 mg/dL (8.5-10.1); Chloride, Blood 107 mmol/L (98-108); Creatinine, Blood 0.71 mg/dL (0.60-1.20); Globulin, Blood 3.3 g/dL (2.2-4.0); Glomerular Filtration Rate >60 (60-); Glucose, Blood 90 mg/dL (70-99); Magnesium, Blood 1.8 mg/dL (1.6-2.4); Potassium, Blood 3.9 mmol/L (3.5-5.5); Sodium, Blood 140 mmol/L (136-145); Total Protein, Blood 7.4 g/dL (6.4-8.2)
[2021-01-14] MEDS ORDERED: CHLO25 PO (16:13)
== END 2021-01-14 16:35 | disposition home or self-care (01) ==
LOC: ER 14:25
PROVIDERS: Emergency Medicine
DX: F10.139 Alcohol abuse with withdrawal, unspecified (principal); Z87.891 Personal history of nicotine dependence
CPT/HCPCS: 80053; 83735; 85025; 99285; A9270

== ENCOUNTER 2021-05-26 16:41 | Emergency (ER) | payer OTHER ==
[~2021-05-26] VITALS: Ht 177.8 cm; Wt 79.4 kg
== END 2021-05-26 17:34 | disposition left against medical advice (07) ==
LOC: ER 16:41
DX: F10.239 Alcohol dependence with withdrawal, unspecified (principal); Z53.21 Procedure and treatment not carried out due to patient leaving prior to being seen by health care provider

== ENCOUNTER 2021-10-25 20:30 | Inpatient (IN) | payer OTHER ==
[~2021-10-25] VITALS: Ht 182.9 cm; Wt 80.4 kg
[2021-10-25 21:30] LABS: BASOPHILS ABSOLUTE AUTO 0.02 K/mm3 (0.00-0.23); BASOPHILS PERCENT AUTO 0 % (0-2); EOSINOPHILS ABSOLUTE AUTO 0.01 K/mm3 (0.00-0.68); EOSINOPHILS PERCENT AUTO 0 % (0-6); Hematocrit 48.7 % (37.0-53.0); Hemoglobin 16.3 g/dL (13.5-17.5); IMMATURE GRAN ABSOLUTE AUTO 0.08 K/mm3 (0.00-0.10); IMMATURE GRAN PERCENT AUTO 1 % (0-1); LYMPHOCYTES ABSOLUTE AUTO 0.65 K/mm3 (0.84-5.20); LYMPHOCYTES PERCENT AUTO 5 % (21-46); MONOCYTES ABSOLUTE AUTO 1.29 K/mm3 (0.16-1.47); MONOCYTES PERCENT AUTO 9 % (4-13); Mean Corpuscular HGB 30.8 pg (26.0-34.0); Mean Corpuscular HGB Conc 33.5 g/dL (31.5-36.5); Mean Corpuscular Volume 92 fL (80-100); Mean Platelet Volume 10.3 fL (9.1-12.4); NEUTROPHILS ABSOLUTE AUTO 12.54 K/mm3 (1.96-9.15); NEUTROPHILS PERCENT AUTO 86 % (41-73); Platelet Count 222 K/mm3 (150-400); RDW Coefficient Variation 11.4 % (11.7-14.2); White Blood Cell Count 14.59 K/mm3 (4.00-11.30)
[2021-10-25 22:16] LABS: Alanine Aminotransfer (ALT/SGP 1548 U/L (12-78); Albumin, Blood 4.1 g/dL (3.4-5.0); Albumin/Globulin Ratio 1.2 (0.8-1.8); Alk Phos 95 U/L (50-136); Anion Gap 19 mmol/L (6-16); Aspartate Aminotrans (AST/SGOT 3618 U/L (12-37); Bilirubin, Total 0.5 mg/dL (0.1-1.0); Blood Urea Nitrogen 37 mg/dL (8-24); Bun/Creatinine Ratio 13.2 (12.0-20.0); CO2, Blood 21 mmol/L (21-32); Calcium, Blood 5.6 mg/dL (8.5-10.1); Chloride, Blood 80 mmol/L (98-108); Globulin, Blood 3.3 g/dL (2.2-4.0); Glomerular Filtration Rate 30 (60-); Glucose, Blood 159 mg/dL (70-99); Potassium, Blood 7.5 mmol/L (3.5-5.5); Sodium, Blood 120 mmol/L (136-145); Total Protein, Blood 7.4 g/dL (6.4-8.2)
[2021-10-25 22:55] LABS: CPK Creatine Kinase >20000 U/L (39-308)
[2021-10-25 23:10] LABS: Anti-Xa UFH, PHA Monitoring <0.10 IU/mL; International Normalized Ratio 1.36
[2021-10-25 23:29] LABS: Creatine Kinase MB 1803.4 ng/mL (0.0-3.6)
[2021-10-25 23:30] LABS: Creatine Kinase MB Index Unable to Calculate (0.0-4.0)
[2021-10-26 00:16] LABS: U Amphetamine Screen DETECTED; U Barbituate Screen Not Detected; U Benzodiazapine Screen Not Detected; U Buprenorphine Screen Not Detected; U Cannabinoids Screen Not Detected; U Cocaine Screen DETECTED; U Methadone Screen Not Detected; U Methamphetamine Screen Not Detected; U Opiates Screen Not Detected; U Oxycodone Screen Not Detected; U Phencyclidine Screen Not Detected; U Propoxyphene Screen Not Detected
[2021-10-26] MEDS ORDERED: REMERON30 M8 PO ×2 (01:44→02:45)
[2021-10-26] MEDS ORDERED: PROP10 PO (01:45)
[2021-10-26] MEDS ORDERED: Venlafaxine HCl75 MG PO (01:49)
[2021-10-26 02:30] LABS: BASOPHILS ABSOLUTE AUTO 0.04 K/mm3 (0.00-0.23); BASOPHILS PERCENT AUTO 0 % (0-2); EOSINOPHILS PERCENT AUTO 0 % (0-6); Hematocrit 48.4 % (37.0-53.0); Hemoglobin 16.4 g/dL (13.5-17.5); IMMATURE GRAN ABSOLUTE AUTO 0.09 K/mm3 (0.00-0.10); IMMATURE GRAN PERCENT AUTO 1 % (0-1); LYMPHOCYTES ABSOLUTE AUTO 0.54 K/mm3 (0.84-5.20); LYMPHOCYTES PERCENT AUTO 3 % (21-46); MONOCYTES ABSOLUTE AUTO 1.32 K/mm3 (0.16-1.47); MONOCYTES PERCENT AUTO 8 % (4-13); Mean Corpuscular HGB 30.4 pg (26.0-34.0); Mean Corpuscular HGB Conc 33.9 g/dL (31.5-36.5); Mean Corpuscular Volume 90 fL (80-100); Mean Platelet Volume 10.2 fL (9.1-12.4); NEUTROPHILS PERCENT AUTO 88 % (41-73); Platelet Count 173 K/mm3 (150-400); RDW Coefficient Variation 11.5 % (11.7-14.2); RDW Standard Deviation 37.9 fL (35.1-46.3); White Blood Cell Count 16.89 K/mm3 (4.00-11.30)
[2021-10-26] MEDS ORDERED: AZELASTINE137 MCG/06 (02:46)
[2021-10-26] MEDS ORDERED: Effexor Xr150 MG PO (02:48)
[2021-10-26 02:53] LABS: Magnesium, Blood 2.1 mg/dL (1.6-2.4)
[2021-10-26 03:00] LABS: Albumin, Blood 3.2 g/dL (3.4-5.0); Albumin/Globulin Ratio 1.1 (0.8-1.8); Bilirubin, Total 0.5 mg/dL (0.1-1.0); Bun/Creatinine Ratio 12.3 (12.0-20.0); Creatinine, Blood 3.09 mg/dL (0.60-1.20); Globulin, Blood 2.9 g/dL (2.2-4.0); Total Protein, Blood 6.1 g/dL (6.4-8.2)
[2021-10-26 03:09] LABS: Calcium, Blood 5.8 mg/dL (8.5-10.1); Potassium, Blood 6.9 mmol/L (3.5-5.5)
[2021-10-26 04:04] LABS: Base Excess Venous -4.2 mmol/L; Bicarbonate Venous 18.8 mmol/L (24.0-30.0); PCO2 Venous 57.9 mmHg (38-42); pH Blood Venous 7.22 (7.34-7.37)
[2021-10-26 06:46] LABS: Source, Urine Foley catheter
[2021-10-26 07:10] LABS: Bilirubin, Urine Neg (Neg); Blood, Urine 5+ (Neg); Glucose Qualitative, Urine 1+ (Neg); Ketones, Urine 1+ (Neg); Leukocyte Esterase, Urine 1+ (Neg); Nitrite, Urine Neg (Neg); Protein, Urine 4+ (Neg); Specific Gravity, Urine 1.015 (1.003-1.022); Urobilinogen, Urine NORM (Normal); pH, Urine 6.5 (5.0-8.0)
[2021-10-26 07:17] LABS: Appearance, Urine Hazy (Clear); Bacteria Few /hpf; Color, Urine Red (P-Yellow); Squamous Epithelial Cells Few /hpf (Few)
[2021-10-26 07:18] LABS: Amorphous Mod (0-Heavy); Granular Casts 0-2 /lpf (0); Mucus Light (0-Heavy)
--- NOTE | 2021-10-26 07:28 | NUR ---
TOOK OVER CARE OF PT AT 0700, PT RESTING ON 12HFNC
--- NOTE | 2021-10-26 07:36 | NUR ---
SHIFT SUMMARY PATIENT TO ROOM AT 0120. PATIENT IS ALERT AND ORIENTED X4. 02 SATS DECLINING SINCE ARRIVAL, PATIENT ON 12L VIA NC NOW, LS COARSE, CT OF CHEST DONE, DR AWARE OF RESULTS. VBG DONE, DR NOTIFIED OF RESULTS, PATIENT UNABLE TO TOLERATE BIPAP, REMAINS ON NC. 02 SATS 90-95%. HR [id number], BP LABILE, PATIENT DENIES CP PRESSURE. PATIENT VERY DIAPHORETIC/CLAMMY, APPEARS TO BE DUE TO LEFT HIP PAIN. LARGE BRUISE ON LEFT HIP. PATIENT UNABLE TO FEEL OR MOVE LEFT LEG. LEG IS WARM, BILATERAL FEET AND HANDS COOL. DOPPLER PULSES ON BLE. TOWARDS END OF SHIFT PATIENT COMPLAINING OF BURNING IN LLE. MEDICATED FOR PAIN PER EMAR. BARBOUR PATENT AND DRAINING TO GRAVITY, DARK BOWN URINE, 100 OUT. CRITICAL LABS CALLED TO HOSPITALIST AND PATIENT MEDICATED PER EMAR. TO BEDISDE THIS AM TO VISUALIZE PATIENT. CALL LIGHT IN REACH.
[2021-10-26 08:35] LABS: Bun/Creatinine Ratio 11.5 (12.0-20.0); Calcium, Blood 5.9 mg/dL (8.5-10.1); Creatinine, Blood 3.83 mg/dL (0.60-1.20); Potassium, Blood 6.3 mmol/L (3.5-5.5)
[2021-10-26 08:37] LABS: Anion Gap 18 mmol/L (6-16); Blood Urea Nitrogen 44 mg/dL (8-24); Bun/Creatinine Ratio 11.6 (12.0-20.0); CO2, Blood 22 mmol/L (21-32); Calcium, Blood 5.8 mg/dL (8.5-10.1); Chloride, Blood 84 mmol/L (98-108); Glomerular Filtration Rate 21 (60-); Glucose, Blood 82 mg/dL (70-99); Phosphorus, Blood 8.5 mg/dL (2.5-4.9); Potassium, Blood 6.2 mmol/L (3.5-5.5); Sodium, Blood 124 mmol/L (136-145)
[2021-10-26 08:40] LABS: Osmolality, Serum 279 mos/KG (275-300)
--- NOTE | 2021-10-26 09:25 | NUR ---
DR. SHEFFIELD NOTIFIED OF LABS, ORDERS PLACED
[2021-10-26 11:31] LABS: Potassium, Blood 6.3 mmol/L (3.5-5.5)
--- NOTE | 2021-10-26 11:44 | NUR ---
PT LEFT ROOM FOR EMERGENT SURGERY
--- NOTE | 2021-10-26 12:20 | NUR ---
10/26/21 1220 Flavio Barton PT ON SCHEDULED MAXIPIME, NO ADDITIONAL ABX PER MD.
--- NOTE | 2021-10-26 12:48 | NUR ---
PT RETURNED FROM ER
[2021-10-26 15:54] LABS: BASOPHILS ABSOLUTE AUTO 0.02 K/mm3 (0.00-0.23); BASOPHILS PERCENT AUTO 0 % (0-2); EOSINOPHILS PERCENT AUTO 0 % (0-6); Hematocrit 38.8 % (37.0-53.0); Hemoglobin 13.8 g/dL (13.5-17.5); IMMATURE GRAN ABSOLUTE AUTO 0.45 K/mm3 (0.00-0.10); IMMATURE GRAN PERCENT AUTO 3 % (0-1); LYMPHOCYTES PERCENT AUTO 3 % (21-46); MONOCYTES ABSOLUTE AUTO 1.16 K/mm3 (0.16-1.47); MONOCYTES PERCENT AUTO 7 % (4-13); Mean Corpuscular HGB 30.6 pg (26.0-34.0); Mean Corpuscular HGB Conc 35.6 g/dL (31.5-36.5); Mean Corpuscular Volume 86 fL (80-100); Mean Platelet Volume 10.7 fL (9.1-12.4); NEUTROPHILS ABSOLUTE AUTO 15.39 K/mm3 (1.96-9.15); NEUTROPHILS PERCENT AUTO 88 % (41-73); Platelet Count 169 K/mm3 (150-400); RDW Coefficient Variation 11.8 % (11.7-14.2); RDW Standard Deviation 36.9 fL (35.1-46.3); Red Blood Cell Count 4.51 M/mm3 (4.30-5.90); White Blood Cell Count 17.52 K/mm3 (4.00-11.30)
[2021-10-26 16:03] LABS: International Normalized Ratio 1.8; Prothrombin Time Results 18.2 Sec (9.7-11.5)
[2021-10-26 16:17] LABS: Bun/Creatinine Ratio 11.5 (12.0-20.0); Calcium, Blood 5.1 mg/dL (8.5-10.1); Creatinine, Blood 4.54 mg/dL (0.60-1.20)
[2021-10-26 16:28] LABS: PCO2 Arterial 34.6 mmHg (35-45); PO2 Arterial 68.6 mmHg (80-100); pH Blood Arterial 7.52 (7.35-7.45)
[2021-10-26 16:50] LABS: Alanine Aminotransfer (ALT/SGP 1068 U/L (12-78); Albumin, Blood 2.5 g/dL (3.4-5.0); Alk Phos 68 U/L (50-136); Anion Gap 13 mmol/L (6-16); Aspartate Aminotrans (AST/SGOT 2872 U/L (12-37); Bilirubin, Direct 0.2 mg/dL (0.0-0.3); Bilirubin, Indirect 0.3 mg/dL (0.1-0.7); Bilirubin, Total 0.5 mg/dL (0.1-1.0); Blood Urea Nitrogen 51 mg/dL (8-24); Bun/Creatinine Ratio 11.4 (12.0-20.0); CO2, Blood 28 mmol/L (21-32); Calcium, Blood 5.5 mg/dL (8.5-10.1); Chloride, Blood 82 mmol/L (98-108); Creatinine, Blood 4.46 mg/dL (0.60-1.20); Globulin, Blood 2.4 g/dL (2.2-4.0); Glomerular Filtration Rate 17 (60-); Glucose, Blood 115 mg/dL (70-99); Lactate Dehydrogenase (Ld),Bld 3779 U/L (100-240); Phosphorus, Blood 5.6 mg/dL (2.5-4.9); Potassium, Blood 6.1 mmol/L (3.5-5.5); Sodium, Blood 123 mmol/L (136-145); Total Protein, Blood 4.9 g/dL (6.4-8.2); Vancomycin, Random 26.6 ug/mL
[2021-10-26 17:01] LABS: CPK Creatine Kinase >20000 U/L (39-308)
--- NOTE | 2021-10-26 19:08 | NUR ---
BED 6219 BECAME AVAILABLE AT [place], ACCEPTING PHYSICIAN IS MARÍA ELENA THAKKAR. RN GAVE REPORT TO ROSIO COPPOLA RN AT 1825, PT LEFT FOR TRANSPORT AT 1905. PT HAD D5 WITH 150MEQ OF BICARB INFUSING AT 350ML/HR AND 4LNC. ONLY ONE PUMP ENDED UP BEING SENT # [id number]. WOUND VAC PUMP WAS CLAMPED AND DISCONNECTED WITH A TEGADERM PLACED OVER CONNECTION POINT PER DR. BUTT INSTRUCTIONS.
== END 2021-10-26 19:10 | disposition short-term general hospital (02) | DRG 982 ==
LOC: ER 20:30 → ICUW 23:33 → EDBEDREQ 10-26 00:41 → ICUW 10-26 01:22
PROVIDERS: Internal Medicine; Internal Medicine Nephrology; Orthopaedic Surgery; Student in an Organized Health Care Education/Training Program; ADMIT Internal Medicine
PROC: 0KNP0ZZ Release Left Hip Muscle, Open Approach (ICD-10-PCS; 2021-10-26)
PROC: 0KNP0ZZ Release Left Hip Muscle, Open Approach (ICD-10-PCS; principal; 2021-10-26 13:45)
DX: T79.A22A Traumatic compartment syndrome of left lower extremity, initial encounter (principal); E87.1 Hypo-osmolality and hyponatremia; M62.82 Rhabdomyolysis; N17.9 Acute kidney failure, unspecified; E87.2 Acidosis; E87.5 Hyperkalemia; E83.39 Other disorders of phosphorus metabolism; E83.51 Hypocalcemia; E79.0 Hyperuricemia without signs of inflammatory arthritis and tophaceous disease; R74.01 Elevation of levels of liver transaminase levels; F15.10 Other stimulant abuse, uncomplicated; S50.812A Abrasion of left forearm, initial encounter; F14.10 Cocaine abuse, uncomplicated; G40.909 Epilepsy, unspecified, not intractable, without status epilepticus; F10.120 Alcohol abuse with intoxication, uncomplicated; F43.10 Post-traumatic stress disorder, unspecified; T68.XXXA Hypothermia, initial encounter; S00.83XA Contusion of other part of head, initial encounter; F41.9 Anxiety disorder, unspecified; F32.A Depression, unspecified; I10 Essential (primary) hypertension; D64.9 Anemia, unspecified; Z79.899 Other long term (current) drug therapy; Z87.820 Personal history of traumatic brain injury; Z98.890 Other specified postprocedural states; Z79.2 Long term (current) use of antibiotics; Z79.01 Long term (current) use of anticoagulants; Z87.891 Personal history of nicotine dependence; Z86.19 Personal history of other infectious and parasitic diseases; V18.0XXA Pedal cycle driver injured in noncollision transport accident in nontraffic accident, initial encounter
CPT/HCPCS: 36415; 36600; 70450; 71045; 71250; 72125; 75635; 80048; 80053; 80069; 80202; 81001; 82248; 82330; 82533; 82550; 82553; 82803; 82947; 83605; 83615; 83735; 83930; 84132; 84295; 84443; 84550; 85025; 85520; 85610; 85651; 85730; 86140; 86850; 86900; 86901; 87086; 93005; 93010; 94660; 96361; 96365; 96367; 96368; 96375; 99285-25; J0610; J0692; J1100; J1170; J1644; J1815; J2185; J2270; J2405; J2543; J2704; J2710; J2765; J3010; J3370; J7030; J7040; J7050; J7060; J7070; J7120; J7799; Q9967

== ENCOUNTER → 2021-12-20 | Outpatient (CLI) | payer OTHER ==
[~2021-12-20] MED LIST changes: +AZELASTINE137 MCG/06; +BACTRIM DS TAB1 EAC1 PO; +Effexor Xr150 MG PO; +HYDMOR2 PO; +PAXLOVID 150-11 EACH PO; +PROP10 PO; +REMERON30 M8 PO; +Venlafaxine HCl75 MG PO
[2021-12-24 10:16] LABS: Stool Occult Bld Immuno 1 Negative (NEGATIVE)
== END | disposition home or self-care (01) ==
LOC: LAB SHORT 15:00 → LAB 15:00
PROVIDERS: Internal Medicine Nephrology
DX: N18.2 Chronic kidney disease, stage 2 (mild) (principal); D63.1 Anemia in chronic kidney disease; N25.81 Secondary hyperparathyroidism of renal origin; E55.9 Vitamin D deficiency, unspecified; E29.1 Testicular hypofunction; R76.9 Abnormal immunological finding in serum, unspecified; R94.5 Abnormal results of liver function studies; R94.6 Abnormal results of thyroid function studies
CPT/HCPCS: G0328

== ENCOUNTER → 2021-12-23 | Outpatient (CLI) | payer OTHER ==
[2021-12-23 19:22] LABS: Protein, Urine Quantitative <5.0 mg/dL (0.0-11.9)
== END | disposition home or self-care (01) ==
LOC: LAB SHORT 14:00
PROVIDERS: Internal Medicine Nephrology
DX: N18.2 Chronic kidney disease, stage 2 (mild) (principal); D63.1 Anemia in chronic kidney disease; N25.81 Secondary hyperparathyroidism of renal origin; E55.9 Vitamin D deficiency, unspecified; E29.1 Testicular hypofunction; R76.9 Abnormal immunological finding in serum, unspecified; R94.5 Abnormal results of liver function studies; R94.6 Abnormal results of thyroid function studies
CPT/HCPCS: 81050; 82043; 84156

== ENCOUNTER 2022-07-07 11:20 | Day surgery (SDC) | payer OTHER ==
[~2022-07-07] VITALS: Ht 177.8 cm; Wt 81.0 kg
[2022-07-07 12:24] LABS: BASOPHILS ABSOLUTE AUTO 0.05 K/mm3 (0.00-0.23); BASOPHILS PERCENT AUTO 1 % (0-2); EOSINOPHILS ABSOLUTE AUTO 0.14 K/mm3 (0.00-0.68); EOSINOPHILS PERCENT AUTO 3 % (0-6); Hemoglobin 15.2 g/dL (13.5-17.5); IMMATURE GRAN ABSOLUTE AUTO 0.03 K/mm3 (0.00-0.10); IMMATURE GRAN PERCENT AUTO 1 % (0-1); LYMPHOCYTES ABSOLUTE AUTO 1.84 K/mm3 (0.84-5.20); LYMPHOCYTES PERCENT AUTO 38 % (21-46); MONOCYTES ABSOLUTE AUTO 0.35 K/mm3 (0.16-1.47); MONOCYTES PERCENT AUTO 7 % (4-13); Mean Corpuscular HGB 30.1 pg (26.0-34.0); Mean Corpuscular Volume 91 fL (80-100); Mean Platelet Volume 10.6 fL (9.1-12.4); NEUTROPHILS PERCENT AUTO 51 % (41-73); Platelet Count 251 K/mm3 (150-400); RDW Coefficient Variation 11.9 % (11.7-14.2); RDW Standard Deviation 39.8 fL (35.1-46.3); Red Blood Cell Count 5.05 M/mm3 (4.30-5.90); White Blood Cell Count 4.91 K/mm3 (4.00-11.30)
[2022-07-07 12:30] LABS: Bun/Creatinine Ratio 25.7 (12.0-20.0); Creatinine, Blood 1.01 mg/dL (0.60-1.20); Potassium, Blood 4.2 mmol/L (3.5-5.5)
[2022-07-07 12:37] LABS: International Normalized Ratio 1.16; Prothrombin Time Results 12.1 Sec (9.7-11.5)
[2022-07-07] MEDS ORDERED: MIRT15 PO (13:40)
[2022-07-07] MEDS ORDERED: Naltrexone HCl50 MG PO (13:41)
[2022-07-07] MEDS ORDERED: Clomiphene Citr50 MG PO (13:42)
--- NOTE | 2022-07-07 14:41 | NUR ---
07/07/22 1441 Zakiya Galarza 1433: 2 SPRAYS EACH NOSTRIL IN PRE-OP PER ORDERS, 4 TOTAL SPRAYS
--- NOTE | 2022-07-07 15:18 | NUR ---
07/07/22 1518 VINNY LAWSON 8MLS OF LIDOCAINE 2% WITH EPI 1:100,000 INJECTED INTO BILATERAL TURBINATES AT START OF CASE BY DR. MANN. 15MLS OF LIDOCAINE 2% WITH EPI 1:100,000 POURED ONTO STERILE FIELD FOR USE DURING CASE.
--- NOTE | 2022-07-07 16:45 | NUR ---
07/07/22 7942 PHILLIP MAYO PT REQUESTING PAIN PILL PRIOR TO LEAVING SO HE DOESN'T WASTE HIS MEDS AT HOME.
== END 2022-07-07 17:09 | disposition home or self-care (01) ==
LOC: ORSCSDS 11:20
PROVIDERS: Otolaryngology
PROC: 09DR4ZZ Extraction of Left Maxillary Sinus, Percutaneous Endoscopic Approach (ICD-10-PCS; principal; 2022-07-07 13:00)
PROC: 09BL4ZZ Excision of Nasal Turbinate, Percutaneous Endoscopic Approach (ICD-10-PCS; principal; 2022-07-07 13:00)
DX: J31.0 Chronic rhinitis (principal); J34.3 Hypertrophy of nasal turbinates; J34.1 Cyst and mucocele of nose and nasal sinus; R09.81 Nasal congestion; I10 Essential (primary) hypertension; Z87.891 Personal history of nicotine dependence; B19.20 Unspecified viral hepatitis C without hepatic coma; F43.10 Post-traumatic stress disorder, unspecified; D69.6 Thrombocytopenia, unspecified; Z79.899 Other long term (current) drug therapy
CPT/HCPCS: 80048; 85025; 85610; 85730; A9270; J0171; J0690; J1100; J2250; J2370; J2405; J2704; J3010; J7120